=== PATIENT | female | born 1965 | race Caucasian/White ===

== ENCOUNTER → 2016-08-12 | Outpatient (CLI) | payer OTHER ==
[~2016-08-12] MED LIST: ACETAMINOPHEN PO; ADVAIR 250-501 EACH IH; ADVAIR 250-501 EACH INH; ALEVE220 M1 PO; ASPIRIN ENTERI325 M1 PO; ASPIRIN81 M1 PO; CALCIUM1 TAB.CHEW PO; CLEOCIN HCL300 M1 PO; CLEOCIN PO; FLEXERIL PO; FLOMAX0.4 M1 PO; FLONASE 0.05% N16 GM; FLONASE16 GM; HYDROCODON-ACE1 EAC7 PO; KLONOPIN0.5 MG PO; MAGNESIUM100 MG PO; MOBIC PO; NITROSTAT0.4 MG SL; PERCOCET 10/3251 TAB PO; PHENERGAN25 M1 PO; SYMBICORT INH; VITAMIN B 12; VITAMIN D250000 UNIT DOB; VOLTAREN75 MG PO; ZOFRANODT PO; ZYRTEC PO
--- NOTE | ~2016-08-12 | CR63 ---
[facility] A Service of [facility] RADIOLOGY TEXT RESULTS PATIENT: ROBERT SUTTON LOCATION: [facility] : 63 UNIT #: [id number] AGE: [address]: ROSAMARIA JOSUE APRN SEX: F ORDER DR: [id number] [place] [id number] O MR#: [id number] Acc #: [id number] NAME: ROBERT SUTTON : 1965 SEX: F STUDY DATE/TIME: 08/12/2016 12:30 UNIT: SRA ROOM: STUDY DESCRIPTION: CR Chest 2 View Attending Physician: Rosamaria Josue Aprn Referring Physician: Rosamaria Josue Aprn Ordering Physician: Rosamaria Josue Aprn Primary Care Physician: Margie Mancia M.D. MEDICAL IMAGING REPORT This report is preliminary unless electronic signature is present. EXAM Two-view chest INDICATIONS Shortness of air beginning 2 days ago. PROCEDURE Frontal and lateral views of the chest COMPARISON 08/30/2012 FINDINGS Heart size is stable. No dense consolidation, effusion or pneumothorax. Mild diffuse interstitial prominence. IMPRESSION 1. No dense consolidation. 2. Mild diffuse interstitial prominence, nonspecific. It possibly could represent an interstitial edema. Correlate with clinical suspicion. It could also be related to slightly low lung volumes. 1. Dictated by... Darshan Cornell M.D. THIS IS AN ELECTRONICALLY VERIFIED REPORT Darshan Cornell M.D. at 08/14/2016 7:15 AM EED/to TD: 08/12/2016 17:41 JOB #: [id number] [facility] A Service [facility] RADIOLOGY TEXT RESULTS PATIENT: ROBERT SUTTON LOCATION: [facility] : 63 UNIT #: [id number] AGE: [address]: ROSAMARIA JOSUE APRN SEX: F ORDER DR: MEDICAL IMAGING REPORT Page 1 of 1
== END | disposition home or self-care (01) ==
LOC: SRAD 12:23
DX: R06.02 Shortness of breath (principal); R91.8 Other nonspecific abnormal finding of lung field
CPT/HCPCS: 71020